=== PATIENT | female | born 1985 | race Caucasian/White ===

== ENCOUNTER 2018-12-26 22:03 | Inpatient (IN) | payer BC ==
[2018-12-26] MEDS ORDERED: Ibuprofen 800 MG TAB PO PRN (22:19)
[2018-12-26] MEDS ORDERED: Ondansetron PF 4 MG/2 ML Vial IVP PRN (22:19)
[2018-12-26] MEDS ORDERED: hydrALAZINE 20 MG/ML VIAL SLOW IVP PRN (22:19)
[2018-12-26] MEDS ORDERED: NS / Oxytocin 40 units/1000ml 1,000 ML IV PRN (22:19)
[2018-12-26] MEDS ORDERED: Butorphanol Tartrate 1 MG/ML VIAL SLOW IVP PRN (22:19)
[2018-12-26] MEDS ORDERED: Promethazine HCl 25 MG/ML VIAL IM PRN (22:19)
[2018-12-26] MEDS ORDERED: Acetaminophen 500 MG TAB PO PRN (22:19)
[2018-12-26] MEDS ORDERED: Lidocaine 1% (PF) 30 ML VIAL SC PRN (22:19)
--- NOTE | 2018-12-26 22:27 | PDOC.FPROB ---
FMR OB H&P: HPI - History of Present Illness Chief Complaint: Contractions Indentification: 33 yo History of Present Illness: 33 yo @ 39.1 presents for painful contractions every 3 minutes. Pt reports loss of mucus plug earlier today and contractions starting around 7am. Contractions subsided by lunch and resumed around 2 pm. They have increased in strength and frequency. Denies LOF, bleeding and discharge. 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 - Surgical History Sx History: None - Social History Social History: Denies alcohol tobacco & drugs FMR OB H&P: Medications - Current Home Medications: Medication Instructions Recorded Confirmed Type Vitamin 1 tablet PO DAILY 12/26/18 12/26/18 History Allergies/Adverse Reactions: Allergies Allergy/AdvReac Type Severity Reaction Status Date / Time No Known Allergies Allergy Unverified 12/26/18 22:46 FMR OB H&P: ROS - Review of Systems General: denies: fever/chills, night sweats Eyes: denies: vision changes Cardiovascular: denies: chest pain Respiratory: denies: shortness of breath Gastrointestinal: denies: abdominal pain, nausea, diarrhea, constipation Genitourinary (Female): reports: contractions. denies: vaginal discharge, vaginal pain, vaginal pressure FMR OB H&P: Vital Signs - Heart Tones Baseline: 140 Variability: moderate Acceleration: present Deceleration: absent Category: category 1 [place] contractions every: 3 min FMR OB H&P: Physical Exam - Physical Exam General: NAD, awake, alert and oriented HEENT: normocephalic and atraumatic, grossly normal vision, grossly normal hearing Heart: no edema General: no respiratory distress, no retractions Neurological: no focal deficit Skin: no jaundice - Pelvic Exam SVE: 8/100/0 Membranes: Intact, bulging bag FMR OB H&P: A/P - Problem List (1) Term Current Visit: Yes Status: Acute Code(s): Z34.90 - ENCNTR FOR SUPRVSN OF NORMAL , UNSP, UNSP TRIMESTER Disposition: 1) TIUP in active labor - pts plan reviewed - currently cat 1 strip cervical check 8cm - will admit to l&d for delivery - labs ordered and pending Discussion: Date/Time: 12/26/182225 This H&P was discussed with [] and [] who agree with the above documentation and plan. Addendum - Attending - Attending Attestation Date/Time: 12/27/18 0032 I personally evaluated the patient and discussed the management with Dr. Cobian. admitted at 8 cm in active labor. Has plan. I agree with the History, Examination, Assessment and Plan documented above.
[2018-12-26] MEDS ORDERED: NS w/ Oxytocin 10 units 500 ML IV SCH (22:30)
[2018-12-26] MEDS ORDERED: NS / Oxytocin 40 units/1000ml 1,000 ML ONE (22:32)
[2018-12-26] MEDS ORDERED: Lidocaine 1% (PF) 30 ML VIAL ONE (22:32)
[2018-12-26 22:50] LABS: Mean Corpuscular HGB CONC 34.1 g/dL (32.0-36.0); Mean Corpuscular Hemoglobin 30.2 pg (27.0-31.0); Mean Corpuscular Volume 88.6 fL (78.0-98.0); Mean Platelet Volume 9.8 fL (7.4-10.4); Platelet Count 180 thou/uL (130-400); RBC Distribution Width 14.7 % (11.5-14.5); Red Blood Cell (RBC) Count 4.29 mill/uL (4.20-5.40); White Blood Cell (WBC) Count 15.3 thou/uL (4.8-10.8)
[2018-12-26 22:54] VITALS: BMI 38.3
[2018-12-26] MEDS: Lactated Ringer's 1,000 ML IV SCH (23:10)
[2018-12-26 23:21] LABS: Syphilis Antibody Nonreactive (Nonreactive); Syphilis Antibody Index 0.03 S/CO (<1.00 Non-Reactive)
[2018-12-26 23:22] LABS: HBSAg Index 0.18 S/CO (0-0.99); Hep B Surf Ag Non-Reactive S/CO (NonReactive)
--- NOTE | 2018-12-27 02:48 | PDOC.OPDEL ---
OB Operative/Delivery Note Delivery Dr/Surgeon: Espinoza Pre-Delivery Diagnosis: active labor Procedure/Post Delivery Dx: spontaneous vaginal delivery Anesthesia: local - Additional Findings/Plan Placenta delivered: spontaneous Repaired Obstetrical Laceration: 2nd degree Estimated blood loss: QBL pending Compilations/Other Findings: Viable female delivered OA. Small 2* episiotomy performed 2* to maternal exhaustion with pushing x 2 1/2 hours. Placenta intact Alondra. Repaired with 2-0 chromic. Baby and mom doing well. Post delivery plan: routine recovery
[2018-12-27] MEDS ORDERED: Acetaminophen/Codeine 30-300mg Tablet PO PRN ×2 (02:52)
[2018-12-27] MEDS ORDERED: Bisacodyl 10 MG SUPP PR PRN (02:52)
[2018-12-27] MEDS ORDERED: Milk Of Magnesia 30 ML UDCUP PO PRN (02:52)
[2018-12-27] MEDS ORDERED: Misoprostol 200 MCG TAB VAG PRN (02:52)
[2018-12-27] MEDS ORDERED: Adacel (T-DAP) 0.5 ML SYRINGE IM ONE (02:52)
[2018-12-27] MEDS ORDERED: hydrALAZINE 20 MG/ML VIAL SLOW IVP PRN (02:52)
[2018-12-27] MEDS ORDERED: NS / Oxytocin 40 units/1000ml 1,000 ML IV SCH (03:00)
[2018-12-27] MEDS: Ibuprofen 800 MG TAB PO PRN (11:55)
[2018-12-27] MEDS: Lactated Ringer's 1,000 ML IV SCH (18:17)
[2018-12-27] MEDS: Ferrous Sulfate 325 MG TAB PO SCH (18:17)
[2018-12-27] MEDS: Docusate Calcium (SURFAK) 240 MG CAP PO SCH ×2 (18:17→22:00)
[2018-12-28] MEDS: Ibuprofen 800 MG TAB PO PRN (02:31)
--- NOTE | 2018-12-28 08:22 | PDOC.PP ---
Post Progress Note Post Day #: PPD1 Subjective: Doing well. Ready for home. PO intake tolerated: yes Flatus: yes Ambulation: yes Vital Signs (12 hours) Temp Pulse Resp BP 12/28/18 00:50 98.3 F 76 18 111/64 12/27/18 20:42 98.6 F 78 18 104/55 L Weight Weight 92.079 kg - Physical Examination General: NAD Respiratory: non-labored breathing Abdominal: no distention Neurological: no gross focal deficits Psychiatric: normal affect Result Diagrams: 12/26/18 22:36 Additional Labs: Post Labs Blood Type O POSITIVE 12/26/18 22:54 Hep Bs Antigen Non-Reactive S/CO (NonReactive) 12/26/18 22:36 (1) Term Code(s): Z34.90 - ENCNTR FOR SUPRVSN OF NORMAL , UNSP, UNSP TRIMESTER Status: Acute - Assessment/Plan Doing well s/p . DC home with precautions. RTC with Dr. Germain in 6 weeks.
[2018-12-28 08:24] VITALS: BP 118/77; TEMP 97.8
[2018-12-28] MEDS: Docusate Calcium (SURFAK) 240 MG CAP PO SCH (09:57)
[2018-12-28] MEDS: Ferrous Sulfate 325 MG TAB PO SCH (09:59)
== END 2018-12-28 14:40 | disposition home or self-care (01) | DRG 807 ==
LOC: L&D/OP 22:03 → L&D 22:29 → 3SW 12-27 15:46
PROVIDERS: ADMIT Obstetrics & Gynecology; ATTEND Obstetrics & Gynecology
PROC: 10E0XZZ Delivery of Products of Conception, External Approach (ICD-10-PCS; principal; 2018-12-27)
PROC: 0KQM0ZZ Repair Perineum Muscle, Open Approach (ICD-10-PCS; 2018-12-27)
PROC: 0W8NXZZ Division of Female Perineum, External Approach (ICD-10-PCS; 2018-12-27)
DX: O99.52 Diseases of the respiratory system complicating childbirth (principal); Z37.0 Single live birth; J45.909 Unspecified asthma, uncomplicated; O70.1 Second degree perineal laceration during delivery; Z3A.39 39 weeks gestation of pregnancy; O75.81 Maternal exhaustion complicating labor and delivery
CPT/HCPCS: 36415; 85027; 86780; 86850; 86900; 86901; 87340; J2001; J2590

== ENCOUNTER 2018-12-29 17:34 | Outpatient (CLI) | payer BC ==
--- NOTE | 2018-12-29 18:13 | ULT ---
Venous duplex sonogram right lower extremity HISTORY: Right leg pain and edema. FINDINGS: The right common femoral the femoral, deep femoral, popliteal, and posterior tibial veins. There is good color and spectral Doppler flow, compression, and augmentation. IMPRESSION: No sonographic evidence of DVT within the right lower extremity.
== END 2018-12-29 17:35 | disposition home or self-care (01) ==
LOC: ULT 17:34
PROVIDERS: ATTEND Obstetrics & Gynecology
DX: R60.0 Localized edema (principal)